=== PATIENT | female | born 1990 | race African-American/Black ===

== ENCOUNTER 2020-06-05 06:25 | Inpatient (IN) ==
[2020-06-05] MEDS ORDERED: PITOCIN IVP ONE (06:35)
[2020-06-05] MEDS ORDERED: PHENERGAN INJ 25 MG IM PRN ×2 (06:35→13:01)
[2020-06-05] MEDS ORDERED: DILAUDID INJ IVP PRN (06:35)
[2020-06-05] MEDS ORDERED: REGLAN INJ 10 MG VIAL IVP PRN (06:35)
[2020-06-05] MEDS ORDERED: MORPHINE SULFATE INJ 2 MG INJ IVP PRN (06:35)
[2020-06-05] MEDS ORDERED: D5LR 1L W PITOCIN 10 UNITS/L 10 UNITS/1,000 ML BAG IV PRN (06:35)
[2020-06-05] MEDS ORDERED: STADOL INJ IVP PRN (06:38)
[2020-06-05] MEDS ORDERED: BETADINE SOLN ONE (06:40)
[2020-06-05] MEDS ORDERED: D5 1/2 NS 1L W PITOCIN 20 UNITS/L 20 UNITS/1,000 ML BAG IV ONE (06:41)
[2020-06-05] MEDS ORDERED: FENTANYL INJ 100 mcg ONE (06:56)
[2020-06-05] MEDS ORDERED: FENTANYL 2 mcg/mL-ROPIV 0.1%-NS EPIDURAL 200 ML EPI ONE (06:57)
[2020-06-05] MEDS ORDERED: LR 1000 ML IV 1,000 ML IV ONE ×2 (06:57→08:45)
[2020-06-05] MEDS ORDERED: D5 1/2 NS 1000 ML 1,000 ML IV SCH (07:00)
[2020-06-05 07:05] LABS: BASOPHILS % (AUTO) 0.4 % (0.2-1.0); EOSINOPHILS # (AUTO) 0.1 x10^3/uL (0.0-0.2); EOSINOPHILS % (AUTO) 1.2 % (0.9-2.9); HEMATOCRIT 36.8 % (36.0-47.0); HEMOGLOBIN 12.4 g/dL (12.0-16.0); LYMPHOCYTES # (AUTO) 1.7 X10^3/uL (1.3-2.9); LYMPHOCYTES % (AUTO) 24.7 % (21.0-51.0); MEAN CORPUSCULAR HEMOGLOBIN 26.1 pg (27.0-34.0); MEAN CORPUSCULAR HGB CONC 33.8 g/dL (33.0-35.0); MEAN PLATELET VOLUME 9.9 fL (7.4-11.0); MONOCYTES # (AUTO) 0.4 x10^3/uL (0.3-0.8); NEUTROPHILS # (AUTO) 4.5 x10^3/uL (2.2-4.8); NEUTROPHILS % (AUTO) 67.7 % (42.0-75.0); PLATELET COUNT 187 X10^3/uL (150.0-450.0); RED BLOOD COUNT 4.78 X10^6/uL (3.5-5.4); RED CELL DISTRIBUTION WIDTH 13.7 % (11.6-16.5); WHITE BLOOD COUNT 6.7 X10^3/uL (3.6-10.0)
[2020-06-05 07:09] LABS: BLOOD UREA NITROGEN 10 mg/dL (7-18); CALCIUM 9.4 mg/dL (8.5-10.1); CARBON DIOXIDE 24.7 mmol/L (21-32); CHLORIDE 100 mmol/L (98-107); CREATININE 0.75 mg/dL (0.55-1.02); SODIUM 134 mmol/L (136-145); eGFR NON BLACK RACES > 60 (>60)
[2020-06-05 07:27] LABS: BILIRUBIN,URINE NEGATIVE (NEGATIVE); BLOOD/HEMOGLOBIN,URINE NEGATIVE (NEGATIVE); GLUCOSE, URINE NEGATIVE (NEGATIVE); KETONES,URINE NEGATIVE (NEGATIVE); LEUKOCYTE ESTERASE ,URINE 3+ (NEGATIVE); NITRITES,URINE NEGATIVE (NEGATIVE); PROTEIN,URINE NEGATIVE (NEGATIVE); UROBILINOGEN,URINE NORMAL (NORMAL)
[2020-06-05 07:31] LABS: APPEARANCE,URINE SLIGHTLY HAZY (CLEAR); COLOR,URINE YELLOW (YELLOW)
[2020-06-05 07:40] LABS: AMORPHOUS SEDIMENT,UR TRACE /HPF (NEGATIVE); BACTERIA,URINE TRACE /HPF (NEGATIVE); RBC,URINE 0-2 /HPF (0-3); SQUAMOUS EPITHELIAL CELL,UR FEW /HPF (NEGATIVE)
[2020-06-05] MEDS ORDERED: MOTRIN TAB 800 MG PO PRN ×2 (13:01→13:30)
[2020-06-05] MEDS ORDERED: DERMOPLAST PAIN RELIEF SPRAY TOP PRN (13:30)
[2020-06-05] MEDS ORDERED: ADACEL or BOOSTRIX TDaP VACCINE IM ONE ×2 (13:30→15:33)
[2020-06-05] MEDS ORDERED: AMBIEN PO PRN (13:30)
[2020-06-05] MEDS ORDERED: MILK OF MAGNESIA PO PRN (13:30)
[2020-06-05] MEDS ORDERED: BENADRYL INJ 50 MG VIAL IV PRN (13:54)
[2020-06-05] MEDS ORDERED: BENADRYL INJ 50 MG VIAL ONE (13:56)
[2020-06-05] MEDS ORDERED: D5 1/2 NS 1000 ML 1,000 ML with PITOCIN 20 UNITS IV SCH ×2 (14:00)
[2020-06-06 06:23] LABS: HEMATOCRIT 33.6 % (36.0-47.0); HEMOGLOBIN 11.3 g/dL (12.0-16.0)
[2020-06-06] MEDS: PRENATAL PLUS PO SCH (09:15)
[2020-06-07 08:10] VITALS: BP 128/69
[2020-06-07] MEDS: PRENATAL PLUS PO SCH (08:48)
== END 2020-06-07 12:10 | disposition home or self-care (01) | DRG 807 ==
LOC: LD 06:25 → MED/SURG 13:30
PROVIDERS: ADMIT Obstetrics & Gynecology Obstetrics; ATTEND Obstetrics & Gynecology Obstetrics
DX: Z23 Encounter for immunization; Z37.0 Single live birth; Z3A.39 39 weeks gestation of pregnancy; O80 Encounter for full-term uncomplicated delivery